=== PATIENT | female | born 1955 | race African-American/Black ===

== ENCOUNTER 2016-08-06 12:06 | Outpatient (RCR) | payer OTHER | END 2016-08-06 14:25 | disposition home or self-care (01) | PROVIDERS: ATTEND Neuromusculoskeletal Medicine, Sports Medicine | DX: Z02.71 Encounter for disability determination (principal); I10 Essential (primary) hypertension; R42 Dizziness and giddiness; M48.00 Spinal stenosis, site unspecified; G62.9 Polyneuropathy, unspecified ==

== ENCOUNTER → 2016-08-06 | Outpatient (CLI) | payer OTHER ==
--- NOTE | 2016-08-06 13:50 | Diagnostic Imaging Report ---
EXAMINATION: AP and frog lateral views of the left hip. INDICATION: Followup hip pain after fracture. FINDINGS: There is healing in progress with osseous bridging across the intertrochanteric fracture seen. The internal fixation hardware in the proximal left femur is intact. No acute fracture. No subluxation or dislocation. Minimal degenerative changes at the hip joints are noted. IMPRESSION: Healing intertrochanteric fracture. Dictated by: Dictated on workstation # [id number]
== END ==
LOC: RAD 11:34
PROVIDERS: ATTEND Neuromusculoskeletal Medicine, Sports Medicine
DX: Z02.71 Encounter for disability determination (principal)
CPT/HCPCS: 73502